=== PATIENT | male | born 2000 | race Caucasian/White ===

== ENCOUNTER 2024-01-24 18:41 | Emergency (ER) | payer MEDICAID ==
[~2024-01-24] VITALS: Ht 182.9 cm; Wt 85.7 kg
[2024-01-24 18:45] VITALS: TEMP 98.3
[2024-01-24 19:14] LABS: EOSINOPHILS # (AUTO) 0.1 K/uL (0.0-0.7); LYMPHOCYTES # (AUTO) 2.3 K/uL (0.8-4.8); MONOCYTES # (AUTO) 0.4 K/uL (0.1-1.30); NEUTROPHILS % (AUTO) 63.7 % (43.0-81.0); RED BLOOD CELL COUNT(AUTO) 5.02 MIL/uL (4.5-6.0); RED CELL DISTRIBUTION WIDTH 12.5 % (11.5-15.0)
[2024-01-24 19:17] LABS: BASOPHILS % (AUTO) 0.3 % (0.0-2.0); HEMATOCRIT 44 % (39-51); LYMPHOCYTES % (AUTO) 29.3 % (20.0-44.0); MEAN CORPUSCULAR HEMOGLOBIN 32 PG (26.0-33.0); MEAN CORPUSCULAR HGB CONC 36 g/dl (31.0-36.0); MEAN CORPUSCULAR VOLUME 88 fL (80-96); MONOCYTES % (AUTO) 5.7 % (2.0-12.0); PLATELET COUNT (AUTO) 234 K/uL (150-450); WHITE BLOOD COUNT (AUTO) 7.8 K/uL (4.3-11.0)
[2024-01-24 19:22] LABS: CALCIUM, SERUM 8.8 mg/dL (8.5-10.1); CARBON DIOXIDE 29 mmol/L (21-32); CHLORIDE 103 mmol/L (98-107); CREATININE 1.1 mg/dL (0.6-1.3); GLUCOSE 137 mg/dL (74-106); POTASSIUM 3.8 mmol/L (3.5-5.1); SODIUM SERUM 137 mmol/L (136-145); UREA NITROGEN, BLOOD 15 mg/dL (7-18)
[2024-01-24] MEDS ORDERED: IBUPROFEN 600 MG TABLET PO ONE (22:00)
[2024-01-24] MEDS ORDERED: IBUP-1490 PO (22:01)
[2024-01-24 22:06] VITALS: BP 129/70; O2SAT 99
== END 2024-01-24 22:07 | disposition home or self-care (01) ==
LOC: ER 18:44
DX: R07.89 Other chest pain (principal); F17.200 Nicotine dependence, unspecified, uncomplicated
CPT/HCPCS: 36415; 71045-TC; 80048-TC; 84484-TC; 85025-TC

== ENCOUNTER 2024-10-01 22:14 | Emergency (ER) | payer MEDICAID ==
[~2024-10-01] VITALS: Ht 182.9 cm; Wt 89.4 kg
[~2024-10-01 22:14] MED LIST: IBUP-1490 PO
[2024-10-01 23:02] VITALS: TEMP 98.4
[2024-10-01 23:10] VITALS: BP 132/66; O2SAT 98
[2024-10-02] MEDS ORDERED: IBUP-1957 PO (01:05)
== END 2024-10-02 01:12 | disposition home or self-care (01) ==
LOC: ER 22:19
DX: S93.622A Sprain of tarsometatarsal ligament of left foot, initial encounter (principal); F17.200 Nicotine dependence, unspecified, uncomplicated; Z79.899 Other long term (current) drug therapy; W22.09XA Striking against other stationary object, initial encounter; Y93.66 Activity, soccer; Y92.39 Other specified sports and athletic area as the place of occurrence of the external cause; Y99.8 Other external cause status
CPT/HCPCS: 73630-TC